=== PATIENT | female | born 1960 | race Caucasian/White ===

== ENCOUNTER 2017-05-02 15:43 | Emergency (ER) | payer MEDICAID ==
[~2017-05-02] VITALS: Ht 152.4 cm; Wt 75.0 kg
[2017-05-02] MEDS ORDERED: TraMADol HCL 50 MG TABLET PO ONE (19:00)
[2017-05-02 19:04] VITALS: BP 151/99
== END 2017-05-02 19:07 | disposition home or self-care (01) ==
LOC: EMS 15:46
DX: S02.2XXA Fracture of nasal bones, initial encounter for closed fracture (principal); W01.0XXA Fall on same level from slipping, tripping and stumbling without subsequent striking against object, initial encounter; X58.XXXA Exposure to other specified factors, initial encounter; Y93.89 Activity, other specified; Y92.89 Other specified places as the place of occurrence of the external cause; Y99.8 Other external cause status
CPT/HCPCS: 70160; 99284